=== PATIENT | male | born 1980 | race Caucasian/White ===

== ENCOUNTER 2019-05-28 15:06 | Emergency (ER) | payer MEDICAID, SELFPAY ==
[2019-05-28 15:08] VITALS: BP 116/79; PULSE 66; RESP 16; TEMP 36.9; O2SAT 99; BMI 22.9
[2019-05-28 15:16] VITALS: O2SAT 100
--- NOTE | 2019-05-28 15:16 | RAD_ITS ---
STUDY: X-RAY CHEST REASON FOR EXAM: Male, 38 years old. Chest pain. TECHNIQUE: Single AP portable view of the chest. COMPARISON: None. FINDINGS: Hyperinflation. The lungs are clear. There is no demonstrated pleural abnormality. Normal size heart. Normal mediastinum and martin. Normal visualized pulmonary arteries. Normal visualized aortic arch and descending thoracic aorta. Normal visualized thoracic spine. Normal visualized ribs, clavicles, and shoulders. There is no demonstrated abnormality of the visualized soft tissue structures of the upper abdomen. RAD/Chest 1 View (Portable) IMPRESSION: Hyperinflation. Electronically Signed: Kilo Matos, at 15:38 EST , Service support ,
--- NOTE | 2019-05-28 15:16 | EKG12_ITS ---
Test Reason : CP Blood Pressure : / mmHG Vent. Rate : 059 BPM Atrial Rate : 059 BPM P-R Int : 162 ms QRS Dur : 090 ms QT Int : 400 ms P-R-T Axes : 070 056 059 degrees QTc Int : 396 ms Sinus bradycardia with sinus arrhythmia Otherwise normal ECG Confirmed by NATALIA OVALLE, ZAY ([id number]), acquisition editor JAZZY KENNEDY ([id number]) on 05/30/2019 12:55:20 PM Referred By: MADELEINE Confirmed By:ZAY FISHER MD
--- NOTE | 2019-05-28 15:37 | ED.DCSUM_ITS ---
History of Present Illness Chief Complaint: Chest Pain Informant: Patient, Significant Other Onset: Today Context: Sudden Onset Timing: Continuous Quality: Sharp anterior bilateral chest pain Location: Anterior bilateral Current Severity: Mild Maximum Severity: Severe Worsened by: Nothing Relieved by: Nothing Associated Symptoms: Nothing Narrative: Patient is a 38-year-old male who smokes three-quarter packs per day and presents with onset of chest pain at 0800 this morning after awakening. Nothing makes the pain better or worse nor did anything precipitated the chest pain. He denies intolerance to any types of food. He denies associated symptoms or radiation. He denies pleuritic pain, leg swelling, discoloration or asymmetry. There is no history of PE or DVT. He did smoke 2 packs/day in the past. There is no family history of coronary disease. He denies symptoms of claudication. He does report heartburn over the past 1 to 2 weeks. There is no history of GERD or reflux. He denies black or maroon stool. Prior similar symptoms: No Recent Illness/Hospitalization: No - Past Medical History (1) No significant past medical history Status: Acute Past Medical History - Allergies and Home Meds Allergies/Adverse Reactions: Allergies aspirin Allergy (Verified 05/28/19 15:07) Other Primary Care Physician: Care Physician,No Primary [Primary Care Provider] - Prior records reviewed: No Past Medical History: None Surgical History: - - Right and left inguinal hernia repair Lives: Spouse/ Significant Other Smoking Status: Heavy Smoker (>10/day) Alcohol: Rare Drugs: None Review of Systems General: Denies: Chills, Fever, Sweats Eyes: Denies: Visual changes - bilaterally, Diplopia ENT: Denies: Rhinorrhea, Sore throat Cardiovascular: Reports: Chest pain. Denies: Palpitations, Heart racing Respiratory: Denies: Dyspnea, Cough, Dyspnea on exertion, Orthopnea, Paroxysmal nocturnal dyspnea Gastrointestinal: Denies: Abdominal pain, Nausea, Vomiting, Diarrhea, Melena, Hematochezia Genitourinary: Denies: Dysuria, Hematuria, Frequency Musculoskeletal: Denies: Myalgias, Arthralgias, Neck pain, Back pain, Swelling, Extremity Pain Skin: Denies: Rash, Wounds Neurological: Denies: Headache, Weakness, Parasthesia, Numbness Hematologic: Denies: Easy bruising, Easy bleeding Physical Exam Vital Signs/Narrative: Vital Signs Temp Pulse Resp BP Pulse Ox 12/02/19 15:08 98.4 F 66 16 116/79 99 Inital Vital Signs reviewed: Yes General: Well nourished, Well developed, No Acute Distress Head: Normocephalic, Atraumatic Eyes: Perrl, EOMI ENT: Moist mucous membranes, No rhinorrhea Neck: Supple, Nontender Cardiovascular: Regular rate, Regular rhythm, No murmurs, Normal S1, Normal S2 Respiratory: No distress, CTA bilaterally, Chest nontender Abdomen: Soft, Nontender, Nondistended, Normal bowel sounds, No masses Back: Nontender, Normal Inspection Extremities: Nontender, No edema, - - There is no asymmetry, swelling, discoloration, leg vein distention, palpable cords or tenderness along the distribution of the deep venous system. Skin: Normal color, No rash Neurological: Alert, Oriented x3, Cranial nerves II-XII grossly intact, Normal Strength, Normal Sensation, Normal Gait Psychological: Normal affect, Normal Mood Diagnostic/Tx/Re-eval Chest X-Ray - ED: 1 View, Read by ED Physician, Normal, Heart, Mediastinum, Bony Structures, No Acute Disease, Chronic Changes, - - Single portable view of the chest reveals normal cardiac silhouette and mediastinum. Heart is small. There is hyper aeration. There is no infiltrate or effusion noted. Osseous structures appear normal. Chest x-ray is negative for any acute findings. Interpretation at 1538 05/28/19 15:16 Chest 1 View (Portable) [RAD] Stat Impressions Chest X-Ray 05/28/19 15:16 IMPRESSION: Hyperinflation. Electronically Signed: Kilo Matos, at 15:38 EST , Service support , 05/28/19 15:16 Chest 1 View (Portable) [RAD] Stat Laboratory Results 05/28/19 05/28/19 15:28 15:28 WBC 6.1 RBC 4.82 Hgb 15.2 Hct 43.5 MCV 90.2 MCH 31.5 MCHC 34.9 RDW Std Deviation 42.8 RDW Coeff of Dominic 13.0 Plt Count 250 MPV 10.2 Immature Gran % (Auto) 0.200 Neut % (Auto) 42.5 L Lymph % (Auto) 44.5 H [place] % (Auto) 9.0 Eos % (Auto) 3.3 Baso % (Auto) 0.5 Absolute Neuts (auto) 2.6 Absolute Lymphs (auto) 2.71 Nucleated RBC % 0 Sodium 142 Potassium 4.1 Chloride 110 H Carbon Dioxide 28.0 Anion Gap 4 L BUN 7 Creatinine 0.99 Estim Creat Clear Calc 103.85 Est GFR (MDRD) Af Amer 109 Est GFR (MDRD) Non-Af 90 BUN/Creatinine Ratio 7.1 L Glucose 88 Calcium 9.0 Troponin I < 0.015 Work-up is unremarkable. D-dimer was not obtained since patient is PERC negative. - EKG Initial EKG Interpretation: Sinus Bradycardia - This bradycardia with a ventricular rate of 59. ND interval is 162 ms. QS duration 90 ms. QT duration 400 ms. [place] is normal. The EKG is normal with 8-1/2 hours of continuous chest pain. - Medical Decision Making Patient with atypical anterior chest pain. This may represent GI with history of heartburn over the past 1 to 2 weeks, esophagitis, gastroenteritis, GERD doubt biliary. Doubt cardiac. Nursing orders were placed and a portable chest x-ray, EKG and blood work was ordered. Patient's work-up is negative. Patient was informed the cause of his pain is uncertain. He has not received his insurance card and does not know who he was assigned to for primary care. He just relocated from [place]. ED Disposition - Plan for ED Patient: Disposition: Home or Assisted Living Diagnosis: Pain in the chest Instructions: CHEST PAIN, NonCardiac Referrals: Care Physician,No Primary [Primary Care Provider] - Additional Instructions: Aloe up with the doctor your insurance company assigned you to. If you have any concerns, do not hesitate to return.
[2019-05-28 15:41] LABS: Absolute Lymphocyte Count 2.71 X10^3/uL (0.83-4.51); Absolute Neutrophil Count 2.6 X10^3/uL (2.0-7.7); Basophil# 0.03 X10^3/uL; Basophil% 0.5 % (0-1); Eosinophils% 3.3 % (0-5); Hematocrit 43.5 % (40-54); Hemoglobin 15.2 g/dL (13.0-16.5); Lymphocyte # 2.71 X10^3/ul (4.0); Lymphocyte % 44.5 % (19-41); Mean Corp Hgb Conc 34.9 g/dL (32-36); Mean Corpuscular Hgb 31.5 pg (27.0-32.0); Mean Corpuscular Volume 90.2 fL (80-94); Mean Platelet Vol. 10.2 fl (6.2-12.0); Monocyte# 0.55 X10^3/uL; NRBC Flagged by Analyzer 0 % (0-5); Neutrophil # 2.59 X10^3/uL (2.7-7.7); Neutrophil % 42.5 % (47-70); Platelet Count 250 K/mm3 (150-450); RBC Distribution Width SD 42.8 fl (35.1-43.9); Red Blood Count 4.82 M/mm3 (4.6-6.2); White Blood Count 6.1 K/mm3 (4.4-11.0)
[2019-05-28 15:53] LABS: Anion Gap 4 (5-15); BUN 7 mg/dL (7-18); BUN/Creat Ratio 7.1 RATIO (10-20); Chloride 110 mmol/L (98-107); Creatinine, Serum 0.99 mg/dL (0.70-1.30); EST Glomerular Filtration Rate 90 mL/min (>60); Est Glom Filt Rate - Afr Amer 109 mL/min (>60); Estimated Creatinine Clearance 103.85 ml/min; Glucose 88 mg/dL (74-106); Potassium 4.1 mmol/L (3.5-5.1); Sodium Level 142 mmol/L (136-145)
[2019-05-28 16:19] VITALS: BP 125/74; PULSE 57; RESP 16; O2SAT 100
[2019-05-28 17:20] VITALS: BP 119/78; PULSE 89; RESP 16; O2SAT 99
== END 2019-05-28 17:20 | disposition home or self-care (01) ==
PROVIDERS: Emergency Provider Emergency Medicine
DX: R07.9 Chest pain, unspecified (principal); F17.200 Nicotine dependence, unspecified, uncomplicated
CPT/HCPCS: 71045; 80048; 84484; 85025; 93005; 99285

== ENCOUNTER 2019-08-22 11:01 | Emergency (ER) | payer MEDICAID, SELFPAY ==
[2019-08-22 11:02] VITALS: BP 131/80; PULSE 81; RESP 16; TEMP 36.4; O2SAT 100; BMI 22.9
--- NOTE | 2019-08-22 11:41 | ED.VIS.DENTA ---
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 Patient states he has had intermittent swelling and pain of his right upper jaw for quite some time. He states that the past 4 days he is at increased swelling and pain. He is worried he has an infection. He did take some old penicillin that he had from a prior dental procedure. He also notes has had intermittent fevers. He has had some nasal congestion and cough. He denies any myalgias. He notes both his children recently had the flu. Patient denies any difficulty swallowing or opening his mouth. He denies any facial swelling. He denies any other complaints at this time. Past Medical History - Allergies and Home Meds Allergies/Adverse Reactions: Allergies aspirin Allergy (Verified 08/22/19 11:01) Other Surgical History: noncontributory, - - Right and left inguinal hernia repair Lives: With Family Smoking Status: Current every day smoker Alcohol: None Drugs: None Review of Systems General: Reports: Fever, Malaise. Denies: Chills, Sweats Eyes: Denies: Visual changes - bilaterally, Diplopia ENT: Reports: - - right upper dental pain . Denies: Bilateral ear pain, Rhinorrhea, Sore throat Cardiovascular: Denies: Chest pain, Palpitations Respiratory: Reports: Cough. Denies: Dyspnea, Dyspnea on exertion Gastrointestinal: Denies: Abdominal pain, Nausea, Vomiting, Diarrhea Musculoskeletal: Reports: Myalgias. Denies: Back pain, Extremity Pain Skin: Denies: Rash, Wounds Neurological: Denies: Headache, Weakness, Numbness Physical Exam Vital Signs/Narrative: Vital Signs Temp Pulse Resp BP Pulse Ox 08/22/19 11:02 97.5 F L 81 16 131/80 H 100 Inital Vital Signs reviewed: Yes General: Well nourished, Well developed Head: Normocephalic, Atraumatic ENT: Moist mucous membranes, No rhinorrhea, TM's clear Mouth/Throat: Normal oral mucosa, No focal abscess, Trismus, Widespread dental decay, - - Patient has a bony protuberance over the lateral surface of his back maxillary jaw on the right. There is no overlying fluctuance or erythema. This is atypical for an abscess.. Negative for: Dental abscess, Tenderness on tooth percussion Neck: Supple, No lymphadenopathy, Nontender, No JVD Cardiovascular: Regular rate, Regular rhythm, No murmurs Respiratory: No distress, CTA bilaterally, Chest nontender Abdomen: Soft, Nontender, Nondistended, Normal bowel sounds Back: Nontender, Normal Inspection Extremities: Nontender, No edema Skin: Normal color, No rash Neurological: Alert, Oriented x3, Cranial nerves II-XII grossly intact, Normal Strength, Normal Sensation Psychological: Normal affect Diagnostic/Tx/Re-eval - Medical Decision Making Patient is evaluated for intermittent fevers as well as dental pain. Patient was exposed to the flu this last week by his daughters. I suspect his fevers and generalized malaise are more from influenza given the exposure and high likelihood of influenza right now. Patient does have widespread dental decay 80 will be apparently started on penicillin for this. He does not have any obvious signs of abscess. He is given a dental referral sheet. Patient is counseled on signs and symptoms requiring return to the emergency room. Patient verbalizes agreement and understand this plan. Patient discharged home in stable and improved condition. ED Disposition - Plan for ED Patient: Disposition: Home or Assisted Living Diagnosis: Dentalgia Instructions: Dental Pain Prescriptions: Penicillin V Potassium 500 mg PO 4X/DAY #40 tab Prescription Printed Additional Instructions: It is possible that you have influenza and this is what is causing the fevers. Continue to alternate Tylenol and ibuprofen as needed. You will be started on antibiotics just in case there is dental infection as well. Return the emergency room with any worsening symptoms. You been given a dental referral sheet for dental clinics.
[2019-08-22 12:04] VITALS: RESP 18
[2019-08-22] MEDS: Penicillin Vk 250 MG Tablet 500 MG PO (12:04)
== END 2019-08-22 12:06 | disposition home or self-care (01) ==
PROVIDERS: Emergency Provider Emergency Medicine
DX: K08.89 Other specified disorders of teeth and supporting structures (principal); F17.200 Nicotine dependence, unspecified, uncomplicated
CPT/HCPCS: 99283

== ENCOUNTER 2019-11-27 20:27 | Emergency (ER) | payer MEDICAID, SELFPAY ==
[2019-11-27 20:28] VITALS: BP 144/97; PULSE 84; PULSE 95; RESP 18; RESP 19; TEMP 36.9; O2SAT 97; O2SAT 98; BMI 22.8
[2019-11-27 20:32] VITALS: O2SAT 98
--- NOTE | 2019-11-27 20:34 | ED.DCSUM_ITS ---
History of Present Illness Informant: Patient Narrative: Patient states that he is addicted to methamphetamines would like some help. He last used this morning. States he recently moved him and his family here from [place] to get away from the methamphetamine seen there. He states that this evening he told his kids that he was going to have to go get some help and after that he started breathing really fast his hands and his feet were tingling and became very panicky. He states he has not felt right over the past couple days like he was coming down from about high. <Mendoza Thomas - Last Filed: 11/27/19 20:34> <Roberto Payton - Last Filed: 11/27/19 23:27> Chief Complaint: Shortness of Breath Past Medical History Surgical History: noncontributory, - - Right and left inguinal hernia repair Smoking Status: Current every day smoker <Mendoza Thomas - Last Filed: 11/27/19 20:34> <Roberto Payton - Last Filed: 11/27/19 23:27> - Allergies and Home Meds Allergies/Adverse Reactions: Allergies aspirin Allergy (Verified 08/22/19 11:01) Other Primary Care Physician: [facility] [STAFF PHYSICIAN] - As soon as possible (they can assist you with your addiction) Review of Systems General: Denies: Chills, Fever, Sweats Eyes: Denies: Visual changes - bilaterally, Diplopia ENT: Denies: Rhinorrhea, Sore throat Cardiovascular: Denies: Chest pain, Palpitations Respiratory: Reports: Dyspnea. Denies: Cough, Dyspnea on exertion Gastrointestinal: Denies: Abdominal pain, Nausea, Vomiting, Diarrhea, Melena, Hematochezia Genitourinary: Denies: Dysuria, Hematuria, Frequency Musculoskeletal: Denies: Back pain, Extremity Pain Skin: Denies: Rash, Wounds Neurological: Reports: Parasthesia. Denies: Headache, Weakness, Numbness <Mendoza Thomas - Last Filed: 11/27/19 20:34> Physical Exam Vital Signs/Narrative: Vital Signs Temp Pulse Resp BP Pulse Ox 11/27/19 20:28 98.4 F 84 19 H 144/97 H 97 Inital Vital Signs reviewed: Yes General: Well nourished, Well developed, No Acute Distress Head: Normocephalic, Atraumatic Eyes: Perrl, EOMI ENT: Moist mucous membranes, No rhinorrhea Neck: Supple, Nontender Cardiovascular: Regular rate, Regular rhythm, No murmurs Respiratory: No distress, CTA bilaterally, Chest nontender, - - Patient is tachypneic but not in distress Abdomen: Soft, Nontender, Nondistended, Normal bowel sounds Back: Nontender, Normal Inspection Extremities: Nontender, No edema Skin: Normal color, No rash Neurological: Alert, Oriented x3, Cranial nerves II-XII grossly intact, Normal Strength, Normal Sensation Psychological: - - Patient extremely anxious and appears hyper alert <Mendoza Thomas - Last Filed: 11/27/19 20:34> Vital Signs/Narrative: Vital Signs Temp Pulse Resp BP Pulse Ox 11/27/19 22:46 64 15 136/79 H 97 11/27/19 20:28 98.4 F 95 18 144/97 H 98 <Roberto Payton - Last Filed: 11/27/19 23:27> Diagnostic/Tx/Re-eval - Medical Decision Making Patient appears to be having a panic attack. I gave him a oral dose of Valium. We will observe him. Care of the patient will be turned over to oncoming physician to assist in disposition <Mendoza Thomas - Last Filed: 11/27/19 20:34> - Medical Decision Making She was reassessed at 2320. He is not hypertensive. He is not tachycardic or tachypneic. He does report improvement. Plan is to discharge to home. <Roberto Payton - Last Filed: 11/27/19 23:27> ED Disposition <Mendoza Thomas - Last Filed: 11/27/19 20:34> <Roberto Payton - Last Filed: 11/27/19 23:27> - Plan for ED Patient: Disposition: Home or Assisted Living Diagnosis: Methamphetamine abuse, Panic attack Instructions: ED AMPHETAMINE ABUSE, ED Panic Attack Referrals: [facility] [STAFF PHYSICIAN] - As soon as possible (they can assist you with your addiction)
[2019-11-27] MEDS: diazePAM 5 MG Tablet PO (20:48)
--- NOTE | 2019-11-27 22:26 | ED.RN ---
NO OLD EKGS IN MUSE
[2019-11-27 22:46] VITALS: BP 136/79; PULSE 64; RESP 15; O2SAT 97
[2019-11-27 23:46] VITALS: BP 138/87; PULSE 66; RESP 20; O2SAT 98
== END 2019-11-27 23:55 | disposition home or self-care (01) ==
PROVIDERS: Emergency Provider Emergency Medicine
DX: F15.10 Other stimulant abuse, uncomplicated (principal); F41.0 Panic disorder [episodic paroxysmal anxiety]; F17.200 Nicotine dependence, unspecified, uncomplicated
CPT/HCPCS: 99283

== ENCOUNTER 2022-03-06 17:54 | Emergency (ER) | payer MEDICAID, SELFPAY ==
[2022-03-06 17:55] VITALS: BP 132/96; PULSE 83; RESP 16; TEMP 37.3; O2SAT 98; BMI 24.0
--- NOTE | 2022-03-06 18:47 | CT_ITS ---
STUDY: CT BRAIN WITHOUT CONTRAST REASON FOR EXAM: Male, 41 years old. headache RADIATION DOSAGE (If Supplied By Facility): CTDIvol = ( 44.99 ) mGy, DLP = ( 863.60 ) mGycm TECHNIQUE: Transaxial CT imaging of the brain was performed without administration of intravenous contrast material. Individualized dose optimization techniques were used for this CT. COMPARISON: No relevant priors. FINDINGS: Normal soft tissue structures. Normal calvarium. Normal size ventricles and extra-axial spaces for the patient''s age. Normal white matter tracts of the cerebral hemispheres. Normal basal ganglia and thalami. Normal brainstem. Normal cerebellum. There is no intracranial hemorrhage. There are no findings of an acute ischemic infarction. Normal visualized paranasal sinuses. CT/Brain/Head without Contrast IMPRESSION: Normal unenhanced CT scan of the brain. Electronically Signed: Lowell Perez MD at 19:11 EDT ,
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
== END 2022-03-06 19:48 | disposition home or self-care (01) ==
PROVIDERS: Emergency Provider Emergency Medicine; Visit Provider Emergency Medicine
DX: R51.9 Headache, unspecified (principal); F17.210 Nicotine dependence, cigarettes, uncomplicated; Z87.820 Personal history of traumatic brain injury
CPT/HCPCS: 70450; 99282

== ENCOUNTER 2022-04-05 11:07 | Outpatient (CLI) | payer MEDICAID, SELFPAY ==
[2022-04-05 13:09] LABS: Absolute Lymphocyte Count 2.95 X10^3/uL (0.83-4.51); Absolute Neutrophil Count 3.1 X10^3/uL (2.0-7.7); Basophil# 0.02 X10^3/uL; Basophil% 0.3 % (0-1); Eosinophil# 0.23 X10^3/uL; Eosinophils% 3.3 % (0-5); Hematocrit 49.7 % (40-54); Hemoglobin 17.3 g/dL (13.0-16.5); Lymphocyte # 2.95 X10^3/ul (0.83-4.51); Lymphocyte % 42.6 % (19-41); Mean Corp Hgb Conc 34.8 g/dL (32-36); Mean Corpuscular Hgb 31.4 pg (27.0-32.0); Mean Corpuscular Volume 90.2 fL (80-94); Mean Platelet Vol. 10.6 fl (6.2-12.0); Monocyte# 0.62 X10^3/uL; NRBC Flagged by Analyzer 0 % (0-5); Neutrophil # 3.08 X10^3/uL (2.7-7.7); Neutrophil % 44.5 % (47-70); Platelet Count 220 K/mm3 (150-450); RBC Distribution Width CV 12.7 % (11.6-14.6); Red Blood Count 5.51 M/mm3 (4.6-6.2); White Blood Count 6.9 K/mm3 (4.4-11.0)
[2022-04-05 13:45] LABS: ALB/GLOB Ratio 0.9 RATIO (0.9-2.4); AST(SGOT) 61 U/L (15-37); Alanine Aminotransfer ALT/SGPT 125 U/L (16-61); Alkaline Phosphatase 68 U/L (45-117); Anion Gap 7 (5-15); BUN 11 mg/dL (7-18); BUN/Creat Ratio 10.8 RATIO (10-20); Calcium,Total 9.5 mg/dL (8.5-10.1); Chloride 104 mmol/L (98-107); Cholesterol 189 mg/dL (200); Creatinine, Serum 1.02 mg/dL (0.70-1.30); EST Glomerular Filtration Rate 85 mL/min (>60); Est Glom Filt Rate - Afr Amer 103 mL/min (>60); GGTP 196 U/L (15-85); Globulin 4.4 g/dL (2.2-4.2); Glucose 87 mg/dL (74-106); High Density Lipoprotein 46 mg/dL; Potassium 4.1 mmol/L (3.5-5.1); Protein, Total 8.4 g/dL (6.4-8.2); Sodium Level 139 mmol/L (136-145); Triglycerides 120 mg/dL; Very Low Density Lipoprotein 24 mg/dL (5-40)
== END 2022-04-05 23:59 | disposition home or self-care (01) ==
LOC: LAB 11:08
PROVIDERS: Referring Provider Family Medicine; Visit Provider Family Medicine
DX: L40.9 Psoriasis, unspecified (principal); K73.9 Chronic hepatitis, unspecified; G43.109 Migraine with aura, not intractable, without status migrainosus; K76.89 Other specified diseases of liver; R53.83 Other fatigue
CPT/HCPCS: 36415; 80053; 80061; 82977; 85025; 86617; 86704; 86705; 86706; 86707; 86803; 87340; 87350; 87522

== ENCOUNTER 2023-07-03 17:12 | Emergency (ER) | payer MEDICAID, OTHER, SELFPAY ==
[2023-07-03 17:12] VITALS: BP 125/69; PULSE 79; RESP 18; TEMP 35.6; O2SAT 100; BMI 22.6
[2023-07-03] MEDS: Penicillin Vk 250 MG Tablet 500 MG PO (17:43)
--- NOTE | 2023-07-03 17:51 | EDS_ITS ---
HPI History of Present Illness Chief Complaint: Dental Narrative Narrative: 42-year-old male with history of dental caries presenting with gum pain. He states on the left upper maxillary teeth. He states he has had this in the past only it is worsening over last few days. States it radiates into the left ear. Denies fevers, chills. Denies nausea or vomiting. Denies difficulty swallowing or breathing. Patient states has had this in the past and took penicillin VK and improved. He states he does follow-up at [facility] and has scheduled dental appointment. He states he is concerned that his teeth are infected and he wants another dose of penicillin. [facility] Medical History Chronic hepatitis C History of drug use Lumbosacral strain TBI (traumatic brain injury) Home Medications albuterol sulfate 90 mcg/actuation aerosol inhaler 2 puff inhalation Q6H PRN 05/14/22 [History Last Taken Unknown] amitriptyline 50 mg tablet 50 mg PO DAILY 05/14/22 [History Last Taken Unknown] fexofenadine 180 mg tablet 180 mg PO DAILY 05/14/22 [History Last Taken Unknown] naratriptan 2.5 mg tablet See Rx Instructions PO .COMPLEX 05/14/22 [History Last Taken Unknown] promethazine 12.5 mg tablet 12.5 mg PO Q6H PRN 05/14/22 [History Last Taken Unknown] penicillin V potassium 500 mg tablet 500 mg PO 4X/DAY #40 tabs 07/03/23 [Rx Last Taken Unknown] Allergy/AdvReac Type Severity Reaction Status Date / Time aspirin Allergy Other Verified 05/14/22 08:50 Social History Smoking Status: Current every day smoker tobacco type: cigarettes ROS ROS ED Constitutional Constitutional ED: Denies chills, fever(s) or sweats Eyes Eyes: Denies blurry vision or change in vision ENT ENT ED: Reports other Details: Dental pain ; Denies ear pain or sore throat Cardiovascular Cardiovascular: Denies chest pain, palpitations or racing heartbeat Respiratory/Chest Respiratory/Chest: Denies cough, dyspnea or sputum Gastrointestinal Gastrointestinal: Denies abdominal pain, constipation, diarrhea, nausea or vomiting Genitourinary Genitourinary ED: Denies dysuria, hematuria or urinary frequency Musculoskeletal Musculoskeletal: Denies arthralgias, myalgias or neck pain Integumentary Denies abscess, Abrasions or rash Neurologic Neurologic: Denies headache(s), paresthesias or weakness Psychiatric Psychiatric: Denies anxiety, depression, suicidal ideation or suicidal thoughts Endocrine Endocrinology: Denies polydipsia or polyuria EXAM Physical Exam Const Vital Signs: 07/03/23 17:12 Temperature 96.0 F L Temperature Source Temporal Pulse Rate 79 Respiratory Rate 18 Blood Pressure 125/69 H Blood Pressure Mean 87 Pulse Ox 100 Oxygen Delivery Method Room Air Positive well nourished HEENT Reports TM's clear and other Multiple dental caries. Mostly edentulous. Tenderness to palpation in the left over Gumline where there is focal dental decay. Glucose normal. No abscess. Tongue without edema. Oropharynx patent without stridor. No sublingual edema. No submandibular fullness. other; Negative for trauma Tympanic Membrane ED: Yes TM's clear bilateral Mouth ED: Yes oral and palatal mucosa normal, Yes lips normal and Yes tongue normal Mouth: oral and palatal mucosa normal, lips normal and tongue normal Throat: posterior oropharynx normal Lymph Lymphatic: no lymphadenopathy noted Resp normal respiratory effort Cardio regular rate and regular rhythm Neuro oriented x3 and CN's II-XII intact bilaterally Sensorium / Orientation: alert Motor Exam: strength 5/5 throughout Skin no rashes or lesions noted MDM MDM MDM Narrative Medical decision making narrative: 42-year-old male presenting with dental caries and dental pain. On examination he is multiple dental caries and focal tender tenderness in the left upper maxillary gumline where he has decay of multiple teeth. No facial swelling, evidence of abscess. No evidence of Mook's angina. Airway patent without stridor. Patient states that he had this before and improved with penicillin VK. This will be started tonight. Tylenol ibuprofen for pain. He has follow- up already planned with Adrienne Owusu. Discharged home in stable condition. Impression: 1. Dental caries 2. Dental pain Lab Data Attestation: I reviewed the patient's lab results. Discharge Plan Triage Chief Complaint: Dental ED Provider: Adams Duggan Dx/Rx/DC Orders Instructions: ED Dental Pain, ED Dental Cavity Prescriptions: New penicillin V potassium 500 mg tablet 500 mg PO 4X/DAY Qty: 40 0RF No Action albuterol sulfate 90 mcg/actuation HFA aerosol inhaler 2 puff inhalation Q6H PRN amitriptyline 50 mg tablet 50 mg PO DAILY fexofenadine 180 mg tablet 180 mg PO DAILY naratriptan 2.5 mg tablet See Rx Instructions PO .COMPLEX Rx Instructions: take 1 tab at onset of headache; if no relief may repeat 1 tab after at least 4 hrs; max = 2 tabs/24 hrs PO promethazine 12.5 mg tablet 12.5 mg PO Q6H PRN Stand Alone Forms: ED Work / School Excuse Primary Care Provider: [facility] Adrienne Gao Referrals: [facility],Adrienne Owusu [Primary Care Provider] - Disposition Disposition: Home, Self Care Discharge Date/Time: 07/03/23 17:46
== END 2023-07-03 17:46 | disposition home or self-care (01) ==
PROVIDERS: Emergency Provider Student in an Organized Health Care Education/Training Program; Visit Provider Student in an Organized Health Care Education/Training Program
DX: K02.9 Dental caries, unspecified (principal); F17.210 Nicotine dependence, cigarettes, uncomplicated
CPT/HCPCS: 99282

== ENCOUNTER 2023-08-04 15:40 | Emergency (ER) | payer MEDICAID, OTHER, SELFPAY ==
[2023-08-04 15:41] VITALS: BP 136/88; PULSE 79; RESP 18; TEMP 36.6; O2SAT 98; BMI 22.4
--- NOTE | 2023-08-04 16:01 | ED.VIS.DYS ---
HPI History of Present Illness Chief Complaint: Shortness of Breath Informant: patient Narrative Narrative: Patient presents with some tight breathing for about 3 days. Patient does have a history of asthma. His daughter is ill with cough and viral symptoms. He started with a sore throat a few days ago and mild congestion. That actually seems to be better. But he states his breathing is tight. His albuterol inhaler helps him but not for long. 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 Nothing has changed. He has not had fevers or chills. No myalgias. He is not actually having chest pain he just feels like his breathing is tight [facility] Medical History Chronic hepatitis C History of drug use Lumbosacral strain TBI (traumatic brain injury) Home Medications albuterol sulfate 90 mcg/actuation aerosol inhaler 2 puff inhalation Q6H PRN 05/14/22 [History Last Taken Unknown] amitriptyline 50 mg tablet 50 mg PO DAILY 05/14/22 [History Last Taken Unknown] fexofenadine 180 mg tablet 180 mg PO DAILY 05/14/22 [History Last Taken Unknown] naratriptan 2.5 mg tablet See Rx Instructions PO .COMPLEX 05/14/22 [History Last Taken Unknown] promethazine 12.5 mg tablet 12.5 mg PO Q6H PRN 05/14/22 [History Last Taken Unknown] penicillin V potassium 500 mg tablet 500 mg PO 4X/DAY #40 tabs 07/03/23 [Rx Last Taken Unknown] prednisone 20 mg tablet 60 mg (3 x 20 mg) PO DAILY #15 TABLETS 08/04/23 [Rx Last Taken Unknown] Allergy/AdvReac Type Severity Reaction Status Date / Time aspirin Allergy Other Verified 08/04/23 15:41 Social History Smoking Status: Current every day smoker tobacco type: cigarettes ROS ROS ED ROS Narrative A complete review of systems was performed and is negative except as documented in the history of present illness. Some specific details below. Constitutional: No fevers or chills. No myalgias. EYE: No discharge, visual complaints, or pain. ENT: No difficulty swallowing. No swelling. No pain. No reflux symptoms. He originally had sore throat and congestion but that actually seems better. CV: No chest pain or palpitations. He has a tight feeling with breathing. Respiratory: See history of present illness. GI: No abdominal pain. No nausea vomiting diarrhea. No blood in stool. : No frequency dysuria or hematuria. Musculoskeletal: No recent trauma. No pains. No swelling. Skin: No rash. Nondiaphoretic. Neuro: No weakness or numbness. Endocrine: No polyuria or polydipsia. EXAM Physical Exam Narrative Exam Narrative: CONSTITUTIONAL: Patient is nontoxic in appearance. The patient looks comfortable. Work of breathing looks normal. HEENT: No notable trauma. Mucous membranes moist. No sinus tenderness. No indication of pain with swallowing. No exudate. EYES: No pallor or injection. NECK:No JVD. No stridor is heard. CARDIOVASCULAR: Regular rate. Regular rhythm. No notable murmur. No JVD. Peripheral pulses are equal. RESPIRATORY: No respiratory distress. Breathing is unlabored. Patient has just a very faint expiratory wheeze. A little bit more in the left upper area. GASTROINTESTINAL: Not distended. Bowel sounds are normal. No tenderness. GENITOURINARY: No CVA tenderness. MUSCULOSKELETAL: Atraumatic. No peripheral edema. No cord. No tenderness along the deep venous system. No asymmetry. No distended veins. NEUROLOGICAL: Patient is alert and appropriate. No focal deficit noted. SKIN: No noted rashes. No diaphoresis. PSYCHIATRIC: Patient is calm. Mood is appropriate. Const Vital Signs: 08/04/23 15:41 08/04/23 16:31 08/04/23 16:34 Temperature 97.8 F Temperature Source Temporal Pulse Rate 79 Respiratory Rate 18 Respiratory Effort Normal Non-Labored Normal Non-Labored Respiratory Depth Normal Respiratory Pattern Normal Blood Pressure 136/88 H Blood Pressure Mean 104 Pulse Ox 98 Oxygen Delivery Method Room Air Room Air MDM MDM MDM Narrative Medical decision making narrative: I talked with the patient about both he and his daughter. We could do studies for viruses such as COVID influenza and RSV. But his daughter has had symptoms too long and he is actually getting on the edge of treatment point. I also do not think either one of them are sick enough chronically to justify the meds. We discussed risks benefits and chose not to test for influenza and COVID and RSV. My independent interpretation of the patient's two-view 3 image chest x-ray shows no sign of acute infiltration. Final reading is pending. Final reading is negative. Patient has been getting benefit from his breathing treatment but his symptoms come back. I think he does have some early asthma exacerbation and laryngeal tracheobronchitis. I do not think antibiotics are necessary. But I think steroids would benefit this patient. We discussed reasons to come back. We discussed expected course. Radiography Diagnostic Testing: Clinical Impression(s) from Imaging Studies Chest X-Ray 08/04/23 16:03 IMPRESSION: Normal x-ray examination of the chest. Electronically Signed: Joaquim Henderson MD at 16:20 EST , EKG Initial EKG: Comments: My independent interpretation of the patient's EKG shows normal sinus rhythm with overall rate at 60. Slight respiratory variation. No ectopy. No acute ST elevation or depression. MT interval, QRS duration and QTc are all normal. Discharge Plan Triage Chief Complaint: Shortness of Breath Other Complaint: Chest Pain ED Provider: Juve Holley Dx/Rx/DC Orders Clinical Impression: Asthma exacerbation, Viral URI with cough Instructions: ED URI, Viral W/ Wheezing (Adult) Prescriptions: New prednisone 20 mg tablet 60 mg PO DAILY Qty: 15 0RF No Action albuterol sulfate 90 mcg/actuation HFA aerosol inhaler 2 puff inhalation Q6H PRN amitriptyline 50 mg tablet 50 mg PO DAILY fexofenadine 180 mg tablet 180 mg PO DAILY naratriptan 2.5 mg tablet See Rx Instructions PO .COMPLEX Rx Instructions: take 1 tab at onset of headache; if no relief may repeat 1 tab after at least 4 hrs; max = 2 tabs/24 hrs PO promethazine 12.5 mg tablet 12.5 mg PO Q6H PRN penicillin V potassium 500 mg tablet 500 mg PO 4X/DAY Qty: 40 0RF Primary Care Provider: [facility]rien[facility] - 3-5 Days if not improving Disposition Disposition: Home, Self Care
--- NOTE | 2023-08-04 16:03 | RAD_ITS ---
STUDY: X-RAY CHEST REASON FOR EXAM: Male, 42 years old. cough TECHNIQUE: Frontal and lateral views of the chest. COMPARISON: 05/28/2019. FINDINGS: The lungs are clear and expanded. There is no demonstrated pleural abnormality. Normal size heart. Normal mediastinum and martin. Normal visualized pulmonary arteries. Normal visualized aortic arch and descending thoracic aorta. Normal visualized thoracic spine. Normal visualized ribs, clavicles, and shoulders. There is no demonstrated abnormality of the visualized soft tissue structures of the upper abdomen. RAD/Chest PA and Lateral IMPRESSION: Normal x-ray examination of the chest. Electronically Signed: Joaquim Henderson MD at 16:20 EST ,
== END 2023-08-04 16:57 | disposition home or self-care (01) ==
PROVIDERS: Emergency Provider Emergency Medicine; Visit Provider Emergency Medicine
DX: J06.9 Acute upper respiratory infection, unspecified (principal); J45.901 Unspecified asthma with (acute) exacerbation; F17.210 Nicotine dependence, cigarettes, uncomplicated
CPT/HCPCS: 71046; 93005; 99283

== ENCOUNTER → 2023-08-18 | Outpatient (CLI) | payer OTHER, MEDICAID, SELFPAY ==
--- NOTE | 2023-08-18 14:49 | RAD_ITS ---
INDICATION: Radiculopathy, lumbar region EXAMINATION/TECHNIQUE: X-RAY - XR Spine Lumbar 2 or 3 Views COMPARISON: No relevant prior comparison study available FINDINGS: VERTEBRAE: Preserved vertebral body height. No fracture. No spondylolisthesis. Preservation of the normal lumbar lordosis. No significant facet arthropathy. DISCS: Minimal disc space narrowing of L4-L5. The remainder of the disc spaces are within normal limits. INCLUDED ABDOMEN: Included bowel gas pattern is non-obstructive. RAD/Lumbar Spine 2 or 3 Views IMPRESSION: Minimal narrowing of L4-5 disc space. Electronically Signed: Lan Castellon MD at 11:19 EST ,
== END | disposition home or self-care (01) ==
LOC: RAD 14:48
PROVIDERS: Referring Provider Nurse Practitioner Family; Visit Provider Nurse Practitioner Family
DX: M54.16 Radiculopathy, lumbar region (principal)
CPT/HCPCS: 72100

== ENCOUNTER 2024-02-10 18:03 | Emergency (ER) | payer OTHER, SELFPAY ==
[2024-02-10 18:05] VITALS: BP 126/81; PULSE 98; RESP 18; TEMP 37.1; O2SAT 98; BMI 22.1
--- NOTE | 2024-02-10 20:40 | ED.RN ---
elgin been here 2 hours. attempted to encourage pt stay that hopefully in the next 15 minutes i could have a room, no elgin been here long enough.
[2024-02-10 21:06] VITALS: O2SAT 99
--- NOTE | 2024-02-10 21:25 | ED.VIS.DYS ---
HPI History of Present Illness Chief Complaint: Cold Sx [facility] Medical History Chronic hepatitis C History of drug use Lumbosacral strain TBI (traumatic brain injury) Home Medications ?Medication ?Instructions ?Recorded ?Last Taken ?Type albuterol sulfate 90 mcg/actuation 2 puff inhalation Q6H PRN 05/14/22 Unknown History aerosol inhaler amitriptyline 50 mg tablet 50 mg PO DAILY 05/14/22 Unknown History fexofenadine 180 mg tablet 180 mg PO DAILY 05/14/22 Unknown History naratriptan 2.5 mg tablet See Rx Instructions PO .COMPLEX 05/14/22 Unknown History promethazine 12.5 mg tablet 12.5 mg PO Q6H PRN 05/14/22 Unknown History penicillin V potassium 500 mg 500 mg PO 4X/DAY #40 tabs 07/03/23 Unknown Rx tablet prednisone 20 mg tablet 60 mg (3 x 20 mg) PO DAILY #15 08/04/23 Unknown Rx TABLETS nirmatrelvir 300 mg (150 mg See Rx Instructions PO .COMPLEX 02/10/24 Unknown Rx x2)-ritonavir 100 mg tablet,dose #30 tabs pack (Paxlovid) ondansetron 4 mg disintegrating 4 mg PO Q8H PRN PRN Nausea #10 tabs 02/10/24 Unknown Rx tablet Allergy/AdvReac Type Severity Reaction Status Date / Time aspirin Allergy Hives Verified 02/10/24 18:05 Social History Smoking Status: Current every day smoker tobacco type: cigarettes EXAM Physical Exam Const Vital Signs: 02/10/24 18:05 02/10/24 21:07 02/10/24 21:51 Temperature 98.8 F 97.7 F L Temperature Source Temporal Pulse Rate 98 63 Respiratory Rate 18 16 Respiratory Effort Normal Non-Labored Respiratory Pattern Normal Blood Pressure 126/81 H 115/70 Blood Pressure Mean 96 85 Pulse Ox 98 98 Oxygen Delivery Method Room Air MDM MDM MDM Narrative Medical decision making narrative: HISTORY OF PRESENT ILLNESS: 43-year-old male presents with headache, fever that began around 1 PM. He notes sore throat that started yesterday. No sick contacts. No chest pain. No shortness of breath. No syncope. REVIEW OF SYSTEMS: Pertinent positives: Headache, fever, sore throat Pertinent negatives: Chest pain, shortness of breath syncope PHYSICAL EXAM: Nursing triage notes reviewed, Vital signs reviewed Constitutional: please see mdm HENT: MMM Eyes: Pupils equal round and reactive to light, Extraocular muscles intact Neck: No stridor, no JVD, full neck ROM Lungs: Clear to auscultation, No wheezing or rales. No increased work of breathing, no conversational dyspnea, no accessory muscle use, no nasal flaring. No respiratory distress noted Heart: Regular rate and rhythm, No murmurs, No rubs and No gallops, 2+ distal pulses (radial, femoral, posterior tibial) in all extremities Abdomen: Soft, there is no tenderness, rigidity, rebound or guarding, no obvious peritoneal signs, no palpable pulsatile abdominal masses, no auscultated abdominal bruit : No CVAT Extremities: No edema Neuro: No focal neurological deficits, cranial nerves II through XII intact, 5/5 strength in all extremities. Intact sensation to light touch in all extremities, 2+ reflexes bilateral patella tendons. Normal gait. No ataxia. Skin: No rash or lesions noted MEDICAL DECISION MAKING: Chief Complaint: As per HPI MDM Narrative: The patient was hemodynamically stable, afebrile and nontoxic-appearing. Protocol COVID flu RSV test was placed in triage. Protocol orders were positive for COVID exam consistent with likely viral URI. Patient ambulates with hypoxia. COVID-19 is the likely etiology of the patient's symptomatology. He was given a prescription for Paxil bid and strict return precautions The patient and/or family, caregivers express understanding. The patient and/or family, caregivers agrees with the plan. Shared decision making: I will have a discussion with the patient and or visitors regarding risk/benefits of further testing or admission. They will be made aware of of the risk/benefits inherent in this decision they will be given the opportunity to voice understanding. Total critical care time today provided was at least 0 minutes. This excludes separately billable procedures. Critical care time (if documented) is secondary to the patient having high probability of clinically significant/life threatening deterioration in the patient's condition which required my urgent intervention. Impression: 1. COVID-19 2. Viral URI Dispo: Discharge home This note was generated with CYPH[employer]ation software. It may contain incorrect words, spelling, and punctuation that were not noted in review of the chart prior to signing. Discharge Plan Triage Chief Complaint: Cold Sx ED Provider: Nick Wynne Dx/Rx/DC Orders Instructions: Coronavirus Disease 2019 (COVID-19): Overview Prescriptions: New Paxlovid 300 mg (150 mg x 2)-100 mg tablets,dose pack See Rx Instructions .ROUTE .COMPLEX Qty: 30 0RF Rx Instructions: take TWO 150 mg tablets of nirmatrelvir with ONE 100 mg tablet of ritonavir twice daily for 5 days ondansetron 4 mg tablet,disintegrating 4 mg PO Q8H PRN PRN (Reason: Nausea) Qty: 10 0RF No Action albuterol sulfate 90 mcg/actuation HFA aerosol inhaler 2 puff inhalation Q6H PRN amitriptyline 50 mg tablet 50 mg PO DAILY fexofenadine 180 mg tablet 180 mg PO DAILY naratriptan 2.5 mg tablet See Rx Instructions PO .COMPLEX Rx Instructions: take 1 tab at onset of headache; if no relief may repeat 1 tab after at least 4 hrs; max = 2 tabs/24 hrs PO promethazine 12.5 mg tablet 12.5 mg PO Q6H PRN penicillin V potassium 500 mg tablet 500 mg PO 4X/DAY Qty: 40 0RF prednisone 20 mg tablet 60 mg PO DAILY Qty: 15 0RF Primary Care Provider: [facility] Adrienne Gao Referrals: [facility] Adrienne Gao [Primary Care Provider] - Activity Restrictions/Additional Instructions: Thank you for trusting us with your care today! Please take Tylenol (2 pills, 650 mg), ibuprofen (2 pills, 400 mg) every 6 hours as needed for pain and fever control. Please take Paxlovid as prescribed. Please return to the emergency department if your symptoms change or worsen. Please follow with your primary care physician for further outpatient evaluation and management. Print Language: Yi Disposition Disposition: Home, Self Care Discharge Date/Time: 02/10/24 21:59
[2024-02-10 21:51] VITALS: BP 115/70; PULSE 63; RESP 16; TEMP 36.5; O2SAT 98
== END 2024-02-10 21:59 | disposition home or self-care (01) ==
PROVIDERS: Emergency Provider Emergency Medicine; Visit Provider Emergency Medicine
DX: U07.1 COVID-19 (principal); B18.2 Chronic viral hepatitis C; F17.210 Nicotine dependence, cigarettes, uncomplicated; J06.9 Acute upper respiratory infection, unspecified
CPT/HCPCS: 87631; 99282

== ENCOUNTER 2024-05-01 13:26 | Emergency (ER) | payer OTHER, SELFPAY ==
[2024-05-01 13:27] VITALS: BP 124/86; PULSE 73; RESP 18; TEMP 36.6; O2SAT 98; BMI 21.9
--- NOTE | 2024-05-01 15:06 | ED.VIS.DYS ---
HPI History of Present Illness Chief Complaint: Cold Sx [facility] Medical History Chronic hepatitis C History of drug use Lumbosacral strain TBI (traumatic brain injury) Home Medications ?Medication ?Instructions ?Recorded ?Last Taken ?Type albuterol sulfate 90 mcg/actuation 2 puff inhalation Q6H PRN 05/14/22 Unknown History aerosol inhaler amitriptyline 50 mg tablet 50 mg PO DAILY 05/14/22 Unknown History fexofenadine 180 mg tablet 180 mg PO DAILY 05/14/22 Unknown History naratriptan 2.5 mg tablet See Rx Instructions PO .COMPLEX 05/14/22 Unknown History promethazine 12.5 mg tablet 12.5 mg PO Q6H PRN 05/14/22 Unknown History penicillin V potassium 500 mg 500 mg PO 4X/DAY #40 tabs 07/03/23 Unknown Rx tablet prednisone 20 mg tablet 60 mg (3 x 20 mg) PO DAILY #15 08/04/23 Unknown Rx TABLETS nirmatrelvir 300 mg (150 mg See Rx Instructions PO .COMPLEX 02/10/24 Unknown Rx x2)-ritonavir 100 mg tablet,dose #30 tabs pack (Paxlovid) ondansetron 4 mg disintegrating 4 mg PO Q8H PRN PRN Nausea #10 tabs 02/10/24 Unknown Rx tablet Allergy/AdvReac Type Severity Reaction Status Date / Time aspirin Allergy Hives Verified 05/01/24 13:27 Social History Smoking Status: Current every day smoker tobacco type: cigarettes EXAM Physical Exam Const Vital Signs: 05/01/24 13:27 05/01/24 13:39 05/01/24 13:39 Temperature 98 F Temperature Source Oral Pulse Rate 73 Respiratory Rate 18 Respiratory Effort Normal Respiratory Depth Normal Respiratory Pattern Normal Normal Blood Pressure 124/86 H Blood Pressure Mean 98 Pulse Ox 98 Oxygen Delivery Method Room Air Room Air MDM MDM MDM Narrative Medical decision making narrative: HISTORY OF PRESENT ILLNESS: 43-year-old male presents with concern for cough and cold symptoms for the last 2 days. He further states he has no chest pain or shortness of breath. No leg swelling or bleeding diathesis noted REVIEW OF SYSTEMS: Pertinent positives: Cough Pertinent negatives: Fever PHYSICAL EXAM: Nursing triage notes reviewed, Vital signs reviewed Constitutional: please see mdm HENT: MMM Eyes: Pupils equal round and reactive to light, Extraocular muscles intact Neck: No stridor, no JVD, full neck ROM Lungs: Clear to auscultation, No wheezing or rales. No increased work of breathing, no conversational dyspnea, no accessory muscle use, no nasal flaring. No respiratory distress noted Heart: Regular rate and rhythm, No murmurs, No rubs and No gallops, 2+ distal pulses (radial, femoral, posterior tibial) in all extremities Abdomen: Soft, there is no tenderness, rigidity, rebound or guarding, no obvious peritoneal signs, no palpable pulsatile abdominal masses, no auscultated abdominal bruit : No CVAT Extremities: No edema Neuro: No focal neurological deficits, cranial nerves II through XII intact, 5/5 strength in all extremities. Intact sensation to light touch in all extremities, 2+ reflexes bilateral patella tendons. Normal gait. No ataxia. Skin: No rash or lesions noted MEDICAL DECISION MAKING: Chief Complaint: Cough External records reviewed: [Reviewed prior allergies, medical issues, vital signs, current medications, Factors affecting care: Hepatitis Social determinants of health: n history of drug use History obtained from others: none Consults: none [facility] Narrative: Patient was initially hemodynamically stable, afebrile and nontoxic-appearing. Exam was unremarkable I considered the following differential diagnosis: Viral URI, bacterial pneumonia Patient's history and physical exam are most consistent with [close ALL IMAGES (IF OBTAINED) HAVE BEEN PERSONALLY REVIEWED AND INTERPRETED BY MYSELF. I have personally reviewed the patient's chest x-ray. Chest x-ray is unremarkable for pulmonary edema, pneumothorax, pneumonia or focal cardiopulmonary abnormality. COVID flu RSV Patient like some from viral URI. Recommend NSAIDs, Tylenol. Recommend increase fluids. Given work note. Strict return precautions were discussed. The patient and/or family, caregivers express understanding. The patient and/or family, caregivers agrees with the plan. Shared decision making: I will have a discussion with the patient and or visitors regarding risk/benefits of further testing or admission. They will be made aware of of the risk/benefits inherent in this decision they will be given the opportunity to voice understanding. Total critical care time today provided was at least 0 minutes. This excludes separately billable procedures. Critical care time (if documented) is secondary to the patient having high probability of clinically significant/life threatening deterioration in the patient's condition which required my urgent intervention. Impression: 1. Acute cough 2. Viral URI Dispo: Discharge home This note was generated with [employer] dictation software. It may contain incorrect words, spelling, and punctuation that were not noted in review of the chart prior to signing. Radiography Diagnostic Testing: Clinical Impression(s) from Imaging Studies Chest X-Ray 05/01/24 15:30 IMPRESSION: No radiographic evidence of acute cardiopulmonary disease. Electronically Signed: Favian Tafoya DO at 17:08 EST Reading Location ID and State: [facility] / [place] Tel [phone], Service support , Discharge Plan Triage Chief Complaint: Cold Sx ED Provider: Nick Wynne Dx/Rx/DC Orders Instructions: ED URI, Viral, No Abx (Adult) Prescriptions: No Action albuterol sulfate 90 mcg/actuation HFA aerosol inhaler 2 puff inhalation Q6H PRN amitriptyline 50 mg tablet 50 mg PO DAILY fexofenadine 180 mg tablet 180 mg PO DAILY naratriptan 2.5 mg tablet See Rx Instructions PO .COMPLEX Rx Instructions: take 1 tab at onset of headache; if no relief may repeat 1 tab after at least 4 hrs; max = 2 tabs/24 hrs PO promethazine 12.5 mg tablet 12.5 mg PO Q6H PRN penicillin V potassium 500 mg tablet 500 mg PO 4X/DAY Qty: 40 0RF prednisone 20 mg tablet 60 mg PO DAILY Qty: 15 0RF Paxlovid 300 mg (150 mg x 2)-100 mg tablets,dose pack See Rx Instructions .ROUTE .COMPLEX Qty: 30 0RF Rx Instructions: take TWO 150 mg tablets of nirmatrelvir with ONE 100 mg tablet of ritonavir twice daily for 5 days ondansetron 4 mg tablet,disintegrating 4 mg PO Q8H PRN PRN (Reason: Nausea) Qty: 10 0RF Primary Care Provider: [facility] Adrienne Gao Referrals: [facility] Adrienne Gao [Primary Care Provider] - Activity Restrictions/Additional Instructions: Thank you for trusting us with your care today! Your chest x-ray was negative for signs of pneumonia. Your COVID flu and RSV swab were negative. You are likely 7 for viral upper respiratory tract infection. Please take Tylenol (2 pills, 650 mg), ibuprofen (2 pills, 400 mg) every 6 hours as needed for pain and fever control. Please return to the emergency department if your symptoms change or worsen. Please follow with your primary care physician for further outpatient evaluation and management. Print Language: Malaysian Disposition Disposition: Home, Self Care
--- NOTE | 2024-05-01 15:30 | RAD_ITS ---
INDICATION: cough EXAMINATION/TECHNIQUE: X-RAY - XR Chest 2 Views COMPARISON: August 04, 2023 FINDINGS: LINES/DEVICES: None. LUNGS: No consolidation, edema or effusion. No pneumothorax. MEDIASTINUM AND CARDIOVASCULAR STRUCTURES: Cardiac silhouette not enlarged. Central airways and mediastinal contour are unremarkable. BONES AND SOFT TISSUES: Unremarkable. RAD/Chest PA and Lateral IMPRESSION: No radiographic evidence of acute cardiopulmonary disease. Electronically Signed: Favian Tafoya DO at 17:08 EST ,
[2024-05-01] MEDS: Acetaminophen 325 MG Tablet 650 MG PO (15:33)
[2024-05-01] MEDS: Ibuprofen 200 MG Tablet 400 MG PO (15:33)
[2024-05-01 17:27] VITALS: PULSE 56; RESP 18; O2SAT 96
== END 2024-05-01 17:40 | disposition home or self-care (01) ==
PROVIDERS: Emergency Provider Emergency Medicine; Visit Provider Emergency Medicine
DX: J06.9 Acute upper respiratory infection, unspecified (principal); K75.9 Inflammatory liver disease, unspecified; F17.210 Nicotine dependence, cigarettes, uncomplicated; R05.9 Cough, unspecified
CPT/HCPCS: 71046; 87631; 99283